=== PATIENT | male | born 1995 | race Two or more races ===

== ENCOUNTER 2020-10-30 15:51 | Outpatient (REF) | payer SELFPAY ==
[2020-10-30 16:17] LABS: Cannabinoid Screen Urine Not Detected (Not Detect)
[2020-10-30 16:19] LABS: Amphetamine Screen Urine Not Detected (Not Detect); Cocaine Screen Urine Not Detected (Not Detect); Opiate Screen Urine Not Detected (Not Detect); Phencyclidine Screen Urine Not Detected (Not Detect)
== END 2020-10-30 15:52 | disposition home or self-care (01) ==
LOC: HO.LNP 15:51
PROVIDERS: Visit Provider Internal Medicine
DX: Z02.1 Encounter for pre-employment examination (principal)
CPT/HCPCS: 80307